=== PATIENT | female | born 1985 | race Caucasian/White ===

== ENCOUNTER 2018-05-24 09:34 | Emergency (ER) | payer BC, SELFPAY ==
[2018-05-24 09:38] VITALS: BP 136/68; PULSE 119; RESP 18; TEMP 36.4; O2SAT 97
--- NOTE | 2018-05-24 09:49 | W.ED.GENAD ---
Discharge Plan Disposition Patient Disposition: HOME Condition: Stable Discharge Details Chief Complaint: Fever Clinical Impression: Flu-like symptoms Primary Care Provider: None,None ED Provider: Asif Horne Home Meds and New Rx's Prescriptions: New oseltamivir 75 mg capsule 75 mg PO BID 5 Days Qty: 10 RF: 0 Discharge Instructions Instructions: Influenza (ED) Stand Alone Forms: Work Release Medical Decision Making 33 yo female who denies chronic medical problems, denies smoking, alcohol or drug use, comes in with cc of fevers to 102 and myalgias and dry cough and nausea. Denies recent travel, abdominal pain, vomit, rashes. She appears well systemically, has clear lungs, no murmurs, no stigmata of endocarditis. Given her constellation of symptoms I suspect she has influenza and will initiate tamiflu. She has clear lungs and no hypoxia and appears well so doubt pna at this time and do not feel abx or imaging indicated. Advised f/u with pcp and return precautions given Differential Diagnosis influenza, viral illness, pna HPI General Mode of arrival: ambulatory. Date/Time Provider Initiated Documentation: 05/24/18 09:35. Limitations to Documentation: no limitations. Information obtained by: patient. History of Present Illness 33 year old F presents to the emergency department with the chief complaint of myalgias and fever, Patient reports no radiation. Patient started experiencing this day(s) (1) and it has been constant. No relieving factors improve symptom(s), No exacerbating factors reported . Patient notes cough. Related Data Home Medications Medication Instructions Recorded Confirmed oseltamivir 75 mg PO BID 5 Days #10 cap 05/24/18 Previous Rx's Medication Instructions Recorded oseltamivir 75 mg PO BID 5 Days #10 cap 05/24/18 Allergies Allergy/AdvReac Type Severity Reaction Status Date / Time No Known Allergies Allergy Unverified 05/28/17 13:08 General Stated Complaint: Fever UMU: 4 Review of Systems Review of Systems All systems reviewed & are unremarkable except as noted in HPI and below ENT Denies change in voice Cardiovascular Denies chest pain and Denies dyspnea Respiratory Denies dyspnea Gastrointestinal Denies abdominal pain and Denies vomiting Integumentary/Breasts Denies rash PFSH Medical History Chest pain Surgical History Repair, ACL Family History Brother Mental disorder Other Colon cancer Heart disease Social History Smoking/Tobacco Use Status: Never Exam Const General: no acute distress Orientation: alert HENMT Head: normal to inspection Ears: external ears normal General nose exam: external nose normal Mouth: moist mucous membranes Eyes General: appearance normal, both eyes and all related structures Neck Neck: normal visual inspection Resp Effort & Inspection: normal respiratory effort and able to speak in complete sentences Cardio Rate: regular rate Skin General skin exam: no rashes or lesions noted Neuro General: alert and oriented x3 Extrem General: normal to inspection Psych Mental Status: mental status grossly normal Course Vital Signs Temperature 36.4 C L 05/24/18 09:38 Pulse 119 H 05/24/18 09:38 Respiratory Rate 18 05/24/18 09:38 Blood Pressure 136/68 05/24/18 09:38 Pulse Oximetry 97 05/24/18 09:38 Temperature 36.4 C L 05/24/18 09:38 Temperature Source Temporal Artery Scan 05/24/18 09:38 Pulse 119 H 05/24/18 09:38 Respiratory Rate 18 05/24/18 09:38 Respiratory Effort Non-Labored 05/24/18 09:41 Blood Pressure 136/68 05/24/18 09:38 Blood Pressure Position Sitting 05/24/18 09:38 Pulse Oximetry 97 05/24/18 09:38 Oxygen Delivery Method Room Air 05/24/18 09:38 Oxygen Flow Rate 0 05/24/18 09:38 Pain Level 0 05/24/18 09:38
--- NOTE | 2018-05-24 09:53 | ED.GENADUL_ITS ---
Discharge Plan Disposition Patient Disposition: HOME Condition: Stable Discharge Details Chief Complaint: Fever Clinical Impression: Flu-like symptoms Primary Care Provider: None,None ED Provider: Asif Horne Home Meds and New Rx's Prescriptions: New oseltamivir 75 mg capsule 75 mg PO BID 5 Days Qty: 10 RF: 0 Discharge Instructions Instructions: Influenza (ED) Stand Alone Forms: Work Release Medical Decision Making 33 yo female who denies chronic medical problems, denies smoking, alcohol or drug use, comes in with cc of fevers to 102 and myalgias and dry cough and nausea. Denies recent travel, abdominal pain, vomit, rashes. She appears well systemically, has clear lungs, no murmurs, no stigmata of endocarditis. Given her constellation of symptoms I suspect she has influenza and will initiate tamiflu. She has clear lungs and no hypoxia and appears well so doubt pna at this time and do not feel abx or imaging indicated. Advised f/u with pcp and return precautions given Differential Diagnosis influenza, viral illness, pna HPI General Mode of arrival: ambulatory . Date/Time Provider Initiated Documentation: 05/24/18 09:35 . Limitations to Documentation: no limitations . Information obtained by: patient . History of Present Illness 33 year old F presents to the emergency department with the chief complaint of myalgias and fever, Patient reports no radiation. Patient started experiencing this day(s) (1) and it has been constant. No relieving factors improve symptom(s), No exacerbating factors reported . Patient notes cough. Related Data Home Medications Medication Instructions Recorded Confirmed oseltamivir 75 mg PO BID 5 Days #10 cap 05/24/18 Previous Rx's Medication Instructions Recorded oseltamivir 75 mg PO BID 5 Days #10 cap 05/24/18 Allergies Allergy/AdvReac Type Severity Reaction Status Date / Time No Known Allergies Allergy Unverified 05/28/17 13:08 General Stated Complaint: Fever UMU: 4 Review of Systems Review of Systems All systems reviewed & are unremarkable except as noted in HPI and below ENT Denies change in voice Cardiovascular Denies chest pain and Denies dyspnea Respiratory Denies dyspnea Gastrointestinal Denies abdominal pain and Denies vomiting Integumentary/Breasts Denies rash PFSH Medical History Chest pain Surgical History Repair, ACL Family History Brother Mental disorder Other Colon cancer Heart disease Social History Smoking/Tobacco Use Status: Never Exam Const General: no acute distress Orientation: alert HENMT Head: normal to inspection Ears: external ears normal General nose exam: external nose normal Mouth: moist mucous membranes Eyes General: appearance normal, both eyes and all related structures Neck Neck: normal visual inspection Resp Effort & Inspection: normal respiratory effort and able to speak in complete sentences Cardio Rate: regular rate Skin General skin exam: no rashes or lesions noted Neuro General: alert and oriented x3 Extrem General: normal to inspection Psych Mental Status: mental status grossly normal Course Vital Signs Temperature 36.4 C L 05/24/18 09:38 Pulse 119 H 05/24/18 09:38 Respiratory Rate 18 05/24/18 09:38 Blood Pressure 136/68 05/24/18 09:38 Pulse Oximetry 97 05/24/18 09:38 Temperature 36.4 C L 05/24/18 09:38 Temperature Source Temporal Artery Scan 05/24/18 09:38 Pulse 119 H 05/24/18 09:38 Respiratory Rate 18 05/24/18 09:38 Respiratory Effort Non-Labored 05/24/18 09:41 Blood Pressure 136/68 05/24/18 09:38 Blood Pressure Position Sitting 05/24/18 09:38 Pulse Oximetry 97 05/24/18 09:38 Oxygen Delivery Method Room Air 05/24/18 09:38 Oxygen Flow Rate 0 05/24/18 09:38 Pain Level 0 05/24/18 09:38
== END 2018-05-24 10:00 | disposition home or self-care (01) ==
LOC: ER 10:19
PROVIDERS: Emergency Provider Emergency Medicine
DX: J11.1 Influenza due to unidentified influenza virus with other respiratory manifestations (principal)
CPT/HCPCS: 99283

== ENCOUNTER 2019-12-14 03:19 | Outpatient (CLI) | payer BC, SELFPAY ==
[2019-12-14 16:46] LABS: ALT 22 U/L (14-59); AST 17 U/L (15-37); Albumin 3.8 g/dL (3.4-5.0); Alkaline Phosphatase 47 U/L (46-116); Anion Gap 8.8 mmol/L (3-11); BUN 9 mg/dL (7-18); Bilirubin, Total 0.6 mg/dL (0.2-1.0); CO2 24.2 mmol/L (21.0-32.0); CREATININE 1.07 mg/dL (0.55-1.02); Calcium 8.8 mg/dL (8.5-10.1); Chloride 103 mmol/L (98-107); Estimated GFR 59.43 (mL/min/1.73m2); Glucose 92 mg/dL (74-106); Potassium 4.4 mmol/L (3.5-5.1); Sodium 136 mmol/L (136-145); TSH (W/Ref FT4) 2.09 uIU/mL (0.36-3.74)
== END 2019-12-14 03:39 ==
PROVIDERS: PCP Nurse Practitioner; Visit Provider Nurse Practitioner
DX: I10 Essential (primary) hypertension (principal); R79.9 Abnormal finding of blood chemistry, unspecified
CPT/HCPCS: 36415; 80053; 84443

== ENCOUNTER 2021-12-05 14:11 | Outpatient (REF) | payer OTHER, SELFPAY ==
--- NOTE | 2021-12-05 13:30 | PAPFT_PTH ---
PATIENT: Everton Bermudez LOC: [facility] U#:[id number] AGE/SX: 36/F ROOM: RE12/05/[address]: CODY Jimeenz : 1985 BED: DIS: 12/05/2021 SPEC #: [id number] RECD: 12/05/21 15:16 STATUS: RAMONITA REMone #: [id number] DOUG: 12/05/21 13:[address]: Elba Snyder DEPT: [facility] Cytology RECD BY: Divya Morillo ENTERED: 12/05/21 15:16 SP TYPE: PAPFT OTHR DR: Parisa Rodriguez APRN Tissues: 1 - CX/ENDOCX FOR PAP SMEARS Procedures: PAP THIN PREP/[facility] Screening HPV DNA PROBE Comments: [id number]
== END 2021-12-05 14:12 | disposition home or self-care (01) ==
LOC: LBN 14:11
PROVIDERS: PCP Nurse Practitioner; Visit Provider Nurse Practitioner Family
DX: Z12.4 Encounter for screening for malignant neoplasm of cervix (principal); Z11.51 Encounter for screening for human papillomavirus (HPV)
CPT/HCPCS: 88142; 87624

== ENCOUNTER 2022-02-06 12:01 | Outpatient (REF) | payer OTHER, SELFPAY ==
[2022-02-08 10:57] LABS: COVID-19 RT-PCR UVMMC Result Negative (Negative)
== END 2022-02-06 12:02 | disposition home or self-care (01) ==
LOC: LBN 12:01
PROVIDERS: PCP Nurse Practitioner; Visit Provider Nurse Practitioner Adult Health
DX: R09.89 Other specified symptoms and signs involving the circulatory and respiratory systems (principal); Z20.822 Contact with and (suspected) exposure to COVID-19
CPT/HCPCS: U0003

== ENCOUNTER 2022-05-14 04:03 | Outpatient (CLI) | payer OTHER, SELFPAY ==
[2022-05-14 11:28] LABS: Anion Gap 6.5 mmol/L (3-11); BUN 8 mg/dL (7-18); CO2 28.5 mmol/L (21.0-32.0); Calcium 8.6 mg/dL (8.5-10.1); Calculated LDL 103 mg/dL (<100); Chloride 103 mmol/L (98-107); Cholesterol 197 mg/dL (<200); Estimated GFR 75.81 (mL/min/1.73m2); Glucose 96 mg/dL (74-106); HDL Cholesterol 81 mg/dL (40-60); Potassium 4.1 mmol/L (3.5-5.1); Sodium 138 mmol/L (136-145); Triglyceride 65 mg/dL (<150); Vitamin B12 468 pg/mL (193-986)
[2022-05-14 11:48] LABS: Vitamin D 25 Total 30.6 ng/mL (30-100)
[2022-05-15 10:51] LABS: Hepatitis C Ab w Rflx HCV PCR Negative (Negative)
[2022-05-15 10:54] LABS: HIV-1/2 Ag & Ab Screen Negative (Negative)
== END 2022-05-14 04:04 | disposition home or self-care (01) ==
LOC: LBO 04:03
PROVIDERS: PCP Nurse Practitioner; Visit Provider Nurse Practitioner
DX: R53.83 Other fatigue (principal); F41.8 Other specified anxiety disorders; E55.9 Vitamin D deficiency, unspecified; R79.89 Other specified abnormal findings of blood chemistry; Z11.4 Encounter for screening for human immunodeficiency virus [HIV]; Z11.59 Encounter for screening for other viral diseases; Z13.220 Encounter for screening for lipoid disorders
CPT/HCPCS: 36415; 80048; 80061; 82306; 86803; 87389; 82607

== ENCOUNTER 2023-11-29 02:16 | Outpatient (CLI) | payer OTHER, SELFPAY ==
[2023-11-29 08:48] LABS: HGB 14.2 g/dL (11.2-15.7); MCH 31.2 pg (27.0-33.0); MCHC 33.8 % (32.0-36.0); MCV 92 fL (80-95); MPV 11.1 fL (8.0-11.0); Platelet Count 275 10^3/uL (130-400); RBC 4.55 10^6/uL (3.93-5.22); RDW 11.9 % (11.7-14.6); RDW-SD 40.4 fL; WBC 4.35 10^3/uL (4.4-10.8)
[2023-11-29 09:17] LABS: Hemoglobin A1C 4.9 % (<5.7)
[2023-11-29 09:31] LABS: ALT 20 U/L (14-59); AST 13 U/L (15-37); Albumin 3.7 g/dL (3.4-5.0); Alkaline Phosphatase 63 U/L (46-116); BUN 9 mg/dL (7-18); Bilirubin, Total 0.42 mg/dL (0.2-1.0); CREATININE 1.1 mg/dL (0.55-1.02); Calcium 8.6 mg/dL (8.5-10.1); Calculated LDL 128 mg/dL (<100); Chloride 105 mmol/L (98-107); Cholesterol 228 mg/dL (<200); Estimated GFR 66.78 (mL/min/1.73m2); Glucose 97 mg/dL (74-106); HDL Cholesterol 87 mg/dL (40-60); Potassium 4.1 mmol/L (3.5-5.1); Sodium 139 mmol/L (136-145); Total Protein 7.7 g/dL (6.4-8.2); Triglyceride 65 mg/dL (<150)
== END 2023-11-29 02:17 | disposition home or self-care (01) ==
LOC: LBO 02:16
PROVIDERS: PCP Nurse Practitioner; Referring Provider Nurse Practitioner; Visit Provider Nurse Practitioner
DX: E66.9 Obesity, unspecified (principal); Z13.220 Encounter for screening for lipoid disorders; Z13.1 Encounter for screening for diabetes mellitus
CPT/HCPCS: 36415; 80053; 80061; 85027; 83036

== ENCOUNTER 2025-03-13 00:38 | Outpatient (CLI) | payer BC, SELFPAY ==
[2025-03-13 09:13] LABS: Abs Immature Grans 0.00 10^3/uL (0.0-0.06); HCT 38.6 % (36.0-46.0); HGB 13.2 g/dL (11.2-15.7); Immature Grans % 0.0 %; MCH 30.5 pg (27.0-33.0); MCHC 34.2 % (32.0-36.0); MCV 89 fL (80-95); MPV 10.1 fL (8.0-11.0); Platelet Count 278 10^3/uL (130-400); RBC 4.33 10^6/uL (3.93-5.22); RDW 12.0 % (11.7-14.6); RDW-SD 39.3 fL; WBC 4.51 10^3/uL (4.4-10.8)
[2025-03-13 09:30] LABS: Hemoglobin A1C 4.8 % (<5.7)
[2025-03-13 09:50] LABS: Glucose Negative (Negative)
[2025-03-13 09:51] LABS: ALT 19 U/L (14-59); AST 13 U/L (15-37); Albumin 3.5 g/dL (3.4-5.0); Alkaline Phosphatase 49 U/L (46-116); Anion Gap 7.3 mmol/L (3-11); BUN 8 mg/dL (7-18); Bilirubin, Total 0.5 mg/dL (0.2-1.0); CO2 26.7 mmol/L (21.0-32.0); Calcium 8.3 mg/dL (8.5-10.1); Chloride 105 mmol/L (98-107); Cholesterol 227 mg/dL (<200); Glucose 95 mg/dL (74-106); HDL Cholesterol 84 mg/dL (>or=50); Potassium 4.2 mmol/L (3.5-5.1); Sodium 139 mmol/L (136-145); TSH 1.95 uIU/mL (0.36-3.74); Total Protein 7.1 g/dL (6.4-8.2)
== END 2025-03-13 00:39 | disposition home or self-care (01) ==
LOC: LBO 00:38
PROVIDERS: PCP Nurse Practitioner; Visit Provider Family Medicine
DX: E78.5 Hyperlipidemia, unspecified (principal); Z13.9 Encounter for screening, unspecified
CPT/HCPCS: 36415; 80053; 80061; 81003; 83036; 84443; 85025